=== PATIENT | female | born 1955 | race Hispanic/Latino ===

== ENCOUNTER → 2023-08-23 | Emergency (ER) | payer MEDICARE ==
--- OUTSIDE RECORDS SUMMARY | 2023-08-23 14:57 | XMS REPORT | Continuity of Care Document ---
Author Name Unknown Address [address] [place] [address] [address] [place] [id number] [facility] thconnect Address [address] [facility] [address] [place] [address] Care Team Providers Care Reducing System Operator Name Role Phone [email or web address] Attending Clinician Olegarioa renetta [email or web address] Admitting Clinician Unavaila ble Payers Payer Name Policy Type Policy Number Effective Date Expirati on Date Source [employer] (MEDICARE REPLACEMENT HMO) [id number] 00:00:00 Problems Condition Name Condition Details Condition Category Status Onset Date Resolution Date Last Treatment Date Treating Clinician Comments Source Elevated blood pressure reading without diagnosis of hypertensi on Elevated blood pressure reading without diagnosis of hypertensi on Diagnosis Active [facility] Screening mammogram, encounter for Screening mammogram, encounter for Diagnosis [facility] Encounter for annual physical exam Encounter for annual physical exam Diagnosis Active [facility] Encounter for screening colonoscop y Encounter for screening colonoscop y Diagnosis Active [facility] Encounters Start Date/Time End Date/Time Encounter Type Admission Type Attending Clinicians Care Facility Care Department Encounter ID Source 2023-05-09 00:00:00 2023-05-09 00:00:00 Outpatient [email or web address] PRIV PRIV [id number] [facility] 2023-01-01 00:00:00 2023-01-01 00:00:00 Outpatient DMG DM [id number] [facility] 2022-07-12 00:00:00 2022-07-12 00:00:00 Outpatient DMG DM [id number] [facility] 2017-12-21 14:30:00 2017-12-21 14:30:00 Outpatient Raghav[facility] [id number] [facility]
[2023-08-23 15:31] LABS: Absolute Lymphocytes (CBC) 2.9 K/uL (0.7-4.9); Hematocrit 41.8 % (36.0-45.0); Lymphocytes % 25.2 % (15.3-44.8); MCV 85.2 fL (80-100); MPV 7.6 fL (7.6-11.3); Platelets 307 thou/uL (152-406); RBC Red Blood Cell Count 4.91 M/uL (3.86-4.86)
[2023-08-23 15:33] LABS: Protime INR 1.17
[2023-08-23 15:43] LABS: Potassium 3.5 mEq/L (3.5-5.1); Troponin High Sensitivity 5.3 pg/mL (<58.9)
--- NOTE | 2023-08-23 15:51 | RAD REPORT ---
EXAM DESCRIPTION: CT - Head Brain Wo Cont - 08/23/2023 3:41 pm CLINICAL HISTORY: headache, HTN COMPARISON: No comparisons TECHNIQUE: All CT scans are performed using dose optimization technique as appropriate and may inclu de automated exposure control or mA/KV adjustment according to patient size. FINDINGS: No intracranial hemorrhage, hydrocephalus or extra-axial fluid collection.No areas of brai n edema or evidence of midline shift. Near complete opacification of the maxillary sinuses. The ethmoid air cells and sphenoid sinuses are also nearly completely opacified. The calvarium is intact. IMPRESSION: No acute intracranial abnormality. Pansinusitis.
--- NOTE | 2023-08-23 16:26 | RAD REPORT ---
EXAM DESCRIPTION: RAD - Chest Single View - 08/23/2023 4:16 pm CLINICAL HISTORY: HTN COMPARISON: No comparisons FINDINGS: Lines: None. Lungs: No evidence of edema or pneumonia. Pleural: No significant pleural effusions or pneumothorax. Cardiac: The heart size is within normal limits. Mediastinum: Within normal limits. Bones: No acute fractures. Other: None IMPRESSION: No acute cardiopulmonary disease.
--- NOTE | 2023-08-23 16:41 | ER ---
Nurse's Notes [facility] Name: Diana Bartlett Age: 68 yrs Sex: Female : 1955 Arrival Date: 08/23/2023 Time: 14:55 Bed 5 Private MD: Diagnosis: Essential (primary) hypertension;Acute pansinusitis Presentation: 08/23 15:08 Chief complaint: Patient states: has been having headaches X 5 days, she went to the iw clinic today and her BP was high, not on BP meds. Coronavirus screen: At this time, the client does not indicate any symptoms associated with coronavirus-19. Ebola Screen: Patient negative for fever greater than or equal to 101.5 degrees Fahrenheit, and additional compatible Ebola Virus Disease symptoms Patient denies exposure to infectious person. Patient denies travel to an Ebola-affected area in the 21 days before illness onset. No symptoms or risks identified at this time. Initial Sepsis Screen: Does the patient meet any 2 criteria? No. Patient's initial sepsis screen is negative. Does the patient have a suspected source of infection? No. Patient's initial sepsis screen is negative. Risk Assessment: Do you want to hurt yourself or someone else? Patient reports no desire to harm self or others. Onset of symptoms was August 18, 2023. 15:08 Method Of Arrival: Ambulatory 15:08 Acuity: CHEMO 2 iw Historical: - Allergies: 15:17 No Known Allergies; iw - Home Meds: 15:17 None [Active]; iw - PMHx: 15:17 None; iw - PSHx: 15:17 None; iw - Immunization history:: Adult Immunizations. - Social history:: Smoking status: Patient denies any tobacco usage or history of. - Family history:: not pertinent. - Hospitalizations: : No recent hospitalization is reported. Screenin:16 [facility] ED Fall Risk Assessment (Adult) History of falling in the last 3 months, ld1 including since admission No falls in past 3 months (0 pts). Abuse screen: Denies threats or abuse. Denies injuries from another. Nutritional screening: No deficits noted. Tuberculosis screening: No symptoms or risk factors identified. Assessment: 15:16 General: Appears in no apparent distress. comfortable, Behavior is calm, cooperative, ld1 appropriate for age. Pain: Denies pain. Neuro: Level of Consciousness is awake, alert, obeys commands, Oriented to person, place, time, situation, Appropriate for age. Cardiovascular: Capillary refill < 3 seconds Patient's skin is warm and dry. Rhythm is regular. Respiratory: Airway is patent Respiratory effort is even, unlabored. GI: Abdomen is flat, non-distended. : No signs and/or symptoms were reported regarding the genitourinary system. : No signs and/or symptoms were reported regarding the genitourinary system. EENT: No signs and/or symptoms were reported regarding the EENT system. Derm: No signs and/or symptoms reported regarding the dermatologic system. Musculoskeletal: No signs and/or symptoms reported regarding the musculoskeletal system. 15:55 Reassessment:. ld1 16:52 Reassessment: Patient appears in no apparent distress at this time. No changes from ld1 previously documented assessment. Patient and/or family updated on plan of care and expected duration. Pain level reassessed. Patient is alert, oriented x 3, equal unlabored respirations, skin warm/dry/pink. Vital Signs: 15:08 BP 209 / 81; Pulse 85; Resp 16; Pulse Ox 100% on R/A; Weight 81.65 kg; Height 5 ft. 0 iw in. ; 15:16 BP 190 / 80; Pulse 77; Resp 18; Pulse Ox 99% on R/A; ld1 15:55 BP 125 / 87; Pulse 93; Resp 24; Pulse Ox 99% on R/A; ld1 16:52 BP 160 / 84; Pulse 83; Resp 18; Pulse Ox 100% on R/A; ld1 15:08 Body Mass Index 35.15 (81.65 kg, 152.4 cm) iw ED Course: 14:57 Patient arrived in ED. mr 14:59 Louie Gabriel MD is Attending Physician. rn 15:02 Arm band placed on Patient placed in an exam room, on a stretcher. ll1 15:10 Triage completed. iw 15:16 Julia Hopper, CASSANDRA is Primary Nurse. ld1 15:16 Patient has correct armband on for positive identification. Placed in gown. Bed in low ld1 position. Call light in reach. Side rails up X2. nurse aide evaluator on. Pulse ox on. NIBP on. Door closed. Noise minimized. Warm blanket given. 15:16 No provider procedures requiring assistance completed. Inserted saline lock: 20 gauge ld1 in right antecubital area, using aseptic technique. Blood collected. 15:43 CT Head Brain wo Cont In Process Unspecified. EDMS 16:18 XRAY Chest (1 view) In Process Unspecified. EDMS 16:53 IV discontinued, intact, bleeding controlled, No redness/swelling at site. ld1 Administered Medications: No medications were administered Medication: 16:53 VIS not applicable for this client. ld1 Outcome: 16:40 Discharge ordered by . rn 16:53 Discharged to home ambulatory, with family, ld1 16:53 Condition: stable 16:53 Discharge instructions given to patient, family, Instructed on discharge instructions, follow up and referral plans. Demonstrated understanding of instructions, follow-up care, medications, Prescriptions given X 2, 16:53 Patient left the ED. ld1 Signatures: Dispatcher [employer] EDOK Efrain Rosanne, Reg Reg mr Emily Vargas, CASSANDRA RN iw Louie Gabriel MD MD rn Lewis, Lynsay, RN RN [facility] Julia Hopper RN RN ld1 Corrections: (The following items were deleted from the chart) 15:11 15:08 Acuity: CHEMO 3 iw iw 15:19 15:08 BP 209 / 81; Pulse 85bpm; Resp 16bpm; Pulse Ox 100% RA; iw
--- NOTE | 2023-08-23 16:41 | EDPHYS ---
Physician Documentation [facility] Name: Diana Bartlett Age: 68 yrs Sex: Female : 1955 Arrival Date: 08/23/2023 Time: 14:55 Bed 5 Private MD: ED Physician Louie Gabriel HPI: 08/23 16:34 This 68 yrs old Female presents to ER via Ambulatory with complaints of High rn Blood Pressure. 16:34 The patient has elevated blood pressure and discovered this at a physician's office. rn Onset: The symptoms/episode began/occurred today. Modifying factors: The symptoms are aggravated by Nothing. Severity of symptoms: At its worst the blood pressure was moderate, in the emergency department the blood pressure is improved. The patient has experienced similar episodes in the past. Patient reports has had high blood pressure in the past but written to anxiousness in the office. Today was in the office again for sinus infection and blood pressure was 170/100. Sent in here for evaluation. Patient reports intermittent headaches for 1 week, no chest pain, no shortness of breath, no abdominal or back pain. Denies focal neurological deficit. Historical: - Allergies: 15:17 No Known Allergies; iw - Home Meds: 15:17 None [Active]; iw - PMHx: 15:17 None; iw - PSHx: 15:17 None; iw - Immunization history:: Adult Immunizations. - Social history:: Smoking status: Patient denies any tobacco usage or history of. - Family history:: not pertinent. - Hospitalizations: : No recent hospitalization is reported. ROS: 16:34 Constitutional: Negative for fever, chills, and weight loss, Eyes: Negative for injury, rn pain, redness, and discharge, Neck: Negative for injury, pain, and swelling, Cardiovascular: Negative for chest pain, palpitations, and edema, Respiratory: Negative for shortness of breath, cough, wheezing, and pleuritic chest pain, Abdomen/GI: Negative for abdominal pain, nausea, vomiting, diarrhea, and constipation, MS/Extremity: Negative for injury and deformity, Skin: Negative for injury, rash, and discoloration, Neuro: Negative for weakness, numbness, tingling, and seizure, Exam: 16:34 Constitutional: This is a well developed, well nourished patient who is awake, alert, rn and in no acute distress. Ambulatory to room without assistance or distress Head/Face: Normocephalic, atraumatic. Neck: Trachea midline, no masses palpated, and no cervical lymphadenopathy. Supple, full range of motion without nuchal rigidity, or vertebral point tenderness. No Meningismus. Cardiovascular: Regular rate and rhythm. No pulse deficits. Respiratory: No increased work of breathing, no retractions or nasal flaring. Abdomen/GI: Soft, non-tender Skin: Warm, dry MS/ Extremity: Pulses equal, no cyanosis. Neuro: Awake and alert, GCS 15, oriented to person, place, time, and situation. Cranial nerves II-XII grossly intact. Motor strength 5/5 in all extremities. Sensory grossly intact. Cerebellar exam normal. Normal gait. Vital Signs: 15:08 BP 209 / 81; Pulse 85; Resp 16; Pulse Ox 100% on R/A; Weight 81.65 kg; Height 5 ft. 0 iw in. ; 15:16 BP 190 / 80; Pulse 77; Resp 18; Pulse Ox 99% on R/A; ld1 15:55 BP 125 / 87; Pulse 93; Resp 24; Pulse Ox 99% on R/A; ld1 16:52 BP 160 / 84; Pulse 83; Resp 18; Pulse Ox 100% on R/A; ld1 15:08 Body Mass Index 35.15 (81.65 kg, 152.4 cm) iw MDM: 14:59 Patient medically screened. rn 16:34 Differential diagnosis: hypertensive crisis, Malignant HTN, intracerebral hemorrhage. rn Data reviewed: vital signs, nurses notes, lab test result(s), EKG, radiologic studies, CT scan, and as a result, I will discharge patient. Counseling: I had a detailed discussion with the patient and/or guardian regarding the historical points, exam findings, and any diagnostic results supporting the discharge/admit diagnosis, the presence of at least one elevated blood pressure reading (>120/80) during this emergency department visit, lab results, radiology results, the need for outpatient follow up, to return to the emergency department if symptoms worsen or persist or if there are any questions or concerns that arise at home. Response to treatment: the patient's symptoms have mildly improved after treatment, and as a result, I will discharge patient. Special discussion: I have referred the patient to see his PCP for further evaluation of high blood pressure. I discussed with the patient/guardian in detail that at this point there is no indication for admission to the hospital. It is understood, however, that if the symptoms persist or worsen the patient needs to return immediately for re-evaluation. Based on the history and exam findings, there is no indication for further emergent testing or inpatient evaluation. I discussed with the patient/guardian the need to see the primary care provider for further evaluation of the symptoms. ED course: No acute findings on imaging or blood here. Blood pressure has improved to 160/71 without medication here. Normal neurological exam. Negative troponin. Normal renal function. Will DC home with hydrochlorothiazide and antibiotics for sinusitis. I have personally reviewed all of the results, including but not limited to blood tests and imaging deemed necessary to safely discharge this patient at this time. All results given to and printed out for patient. I personally went over all the results with the patient and answered all questions. Patient will follow-up with PCP and or specialist as discussed. Return precautions given and understood.. 08/23 15:11 Order name: Basic Metabolic Panel; Complete Time: 15:59 08/23 15:11 Order name: CBC with Diff; Complete Time: 15:59 08/23 15:11 Order name: NT PRO-BNP; Complete Time: 15:59 08/23 15:11 Order name: PT-INR; Complete Time: 15:59 08/23 15:11 Order name: Troponin HS; Complete Time: 15:59 08/23 15:11 Order name: XRAY Chest (1 view); Complete Time: 16:29 rn 08/23 15:11 Order name: CT Head Brain wo Cont; Complete Time: 15:59 08/23 15:11 Order name: EKG; Complete Time: 15:12 rn 08/23 15:11 Order name: Cardiac monitoring; Complete Time: 15:16 08/23 15:11 Order name: EKG - Nurse/Tech; Complete Time: 15:16 08/23 15:11 Order name: IV Saline Lock; Complete Time: 15:16 rn 08/23 15:11 Order name: Labs collected and sent; Complete Time: 15:16 08/23 15:11 Order name: O2 Per Protocol; Complete Time: 15:16 08/23 15:11 Order name: O2 Sat Monitoring; Complete Time: 15:16 rn Administered Medications: No medications were administered Disposition Summary: 08/23/23 16:40 Discharge Ordered Notes: Location: Home rn Problem: an ongoing problem rn Symptoms: have improved rn Condition: Stable rn Diagnosis - Essential (primary) hypertension rn - Acute pansinusitis rn Followup: rn - With: Private Physician - When: As needed - Reason: Recheck today's complaints, Re-evaluation by your physician Discharge Instructions: - Discharge Summary Sheet rn - Hypertension, Adult rn - Heart Disease element burner - How to Take Your Blood Pressure, [id number] rn - Managing Your Hypertension rn Forms: - Medication Reconciliation Form rn - Thank You Letter rn - Antibiotic returned case inspector - Prescription Opioid Use rn - Patient Portal Instructions rn - Leadership Thank You Letter rn Prescriptions: - Hydrochlorothiazide 25 mg Oral Tablet - take 1 tablet ORAL route once daily .; 30 tablet; Refills: 0, Product Selection rn Permitted - Zithromax Z-Rene 250 mg Oral Tablet - take 1 tablet ORAL route as directed for 5 days Day 1 - take two (2) tablets rn one time. Day 2, 3, 4 , 5 take one (1) tablet once daily.; 6 tablet; Refills: 0, Product Selection Permitted Signatures: Dispatcher [employer] Emily Gonzalez RN RN Louie Palacios MD MD rn
[2023-08-23 19:32] VITALS: BP 160/84
[2023-08-23 19:33] VITALS: O2SAT 100
--- NOTE | 2023-08-25 13:26 | EKG ---
Test Date: 2023-08-23 Test Time: 15:13:16 Adult Health Clinical Nurse Specialist: LOLLY MEASUREMENT RESULTS: Intervals: Rate: 77 [place]: 144 QRSD: 84 QT: 376 QTc: 425 Sprakers: P: 65 [place]: 144 QRS: 61 T: 47 INTERPRETIVE STATEMENTS: Normal sinus rhythm Normal ECG No previous ECG available for comparison Electronically Signed On 08-25-23 13:22:24 MARKETING ADMINISTRATIVE ASSISTANT by Osmar Rivera
== END ==
LOC: ER 14:55
DX: I10 Essential (primary) hypertension (principal); J01.40 Acute pansinusitis, unspecified
CPT/HCPCS: 36415; 70450; 71045; 80048; 83880; 84484; 85025; 85610; 93005; 99284